=== PATIENT | male | born 1945 | race Asian ===

== ENCOUNTER 2017-12-14 16:37 | Emergency (ER) | payer OTHER, MEDICAID ==
[~2017-12-14] VITALS: Ht 157.5 cm; Wt 59.4 kg
[2017-12-14 16:45] VITALS: BP_SYST 148
[2017-12-14] MEDS ORDERED: fentaNYL CITRATE/PF 100 MCG/2 ML AMP IVP ONE (16:45)
[2017-12-14] MEDS ORDERED: ONDANSETRON HCL 4 MG/2 ML VIAL IVP ONE (16:45)
[2017-12-14] MEDS ORDERED: ETOMIDATE 20 MG/ 10 ML VIAL (AMIDATE) IVP ONE (17:15)
[2017-12-14 18:43] VITALS: BP_SYST 142
== END 2017-12-14 18:43 | disposition home or self-care (01) ==
LOC: SED 16:37
DX: S53.124A Posterior dislocation of right ulnohumeral joint, initial encounter (principal); Z86.79 Personal history of other diseases of the circulatory system; W01.0XXA Fall on same level from slipping, tripping and stumbling without subsequent striking against object, initial encounter; Y93.89 Activity, other specified; Y92.89 Other specified places as the place of occurrence of the external cause; Y99.8 Other external cause status
CPT/HCPCS: 24600; 73070; 73080; 96374; 96375; 99152; 99285; J2405; J3010; J3490